=== PATIENT | male | born 1975 | race Caucasian/White ===

== ENCOUNTER 2018-01-21 09:32 | Inpatient (IN) | payer MEDICAID, OTHER ==
--- NOTE | 2018-01-21 09:49 | EDPHY ---
H & P Time Seen by Provider: 01/21/18 09:45 HPI/ROS: CHIEF COMPLAINT: Suicidal ideation HISTORY OF PRESENT ILLNESS: Patient says he was [facility] was hospitalized there for 11 days because of being suicidal. He is recently homeless and presents complaining of suicidal ideation. He says he will "walk into traffic" or he will "buy razors, to watch myself bleed."Denies drug or alcohol use today, denies actually injuring himself or overdosing. REVIEW OF SYSTEMS: Eye: no change in vision ENT: no sore throat Cardiac: no chest pain or syncope Pulmonary: no cough or SOB Abdomen: no vomiting, diarrhea, abdominal pain Musculoskeletal: Chronic back pain, unchanged Skin: no rash Neuro: no headache Constitutional: no fever : no urinary symptoms A comprehensive 10 point review of systems is otherwise negative aside from elements mentioned in the history of present illness. PAST MEDICAL HISTORY: Includes bipolar, seizure disorder, Tourette syndrome Social history: Discharged from [facility] last night, no drugs or alcohol today General Appearance: Alert and conversant, cooperative. Eyes: No scleral icterus. ENT, Mouth: Normal mucous membranes. Respiratory: Normal respiratory effort, breath sounds equal, lungs are clear to auscultation. Cardiovascular: Regular rate and rhythm. Gastrointestinal: Abdomen is soft and non tender. Neurological: Alert, face symmetric, normal motor and sensory in extremities. Ambulatory. Skin: Warm and dry, no rashes. Musculoskeletal: No peripheral edema. Psychiatric: Not agitated. Suicidal with see HPI for details. Emergency Department course/MDM: Patient is placed on a mental health hold by myself for suicidal ideation with a plan. Plan for screening labs and mental health evaluation. Nicotine patch. 1053: The patient had a medical screening evaluation performed. There does not appear to be an acute emergent medical or surgical condition which would preclude psychiatric evaluation at this time. Mental health evaluation is requested at this time. 1200: The patient will be transferred to [facility] for [ inpatient psychiatric hospital bed] not available at this facility, in stable condition; accepting provider is Wilbur Carpenter; EMTALA form completed. Smoking Status: Current every day smoker Constitutional: Initial Vital Signs Temperature (C) 36.4 C 01/21/18 09:37 Heart Rate 94 01/21/18 09:37 Respiratory Rate 18 01/21/18 09:37 Blood Pressure 137/106 H 01/21/18 09:37 O2 Sat (%) 95 01/21/18 09:37 O2 Delivery Mode Room Air Allergies/Adverse Reactions: No Known Allergies Allergy (Unverified 01/21/18 09:35) Home Medications: Medication Instructions Recorded FLUoxetine 20 mg 01/21/18 Fluphenazine HCl 2.5 mg 01/21/18 LEVETIRACETAM 500 mg 01/21/18 Topiramate 25 mg 01/21/18 Medical Decision Making - Data Points Laboratory Results: Laboratory Results 01/21/18 09:45 01/21/18 10:00 01/21/18 01/21/18 01/21/18 10:00 10:00 09:45 WBC 6.02 10^3/uL 10^3/uL (3.80-9.50) RBC 4.83 10^6/uL 10^6/uL (4.40-6.38) Hgb 16.1 g/dL g/dL (13.7-17.5) Hct 44.8 % % (40.0-51.0) MCV 92.8 fL fL (81.5-99.8) MCH 33.3 pg pg (27.9-34.1) MCHC 35.9 g/dL g/dL (32.4-36.7) RDW 11.9 % % (11.5-15.2) Plt Count 147 10^3/uL L 10^3/uL (150-400) MPV 9.8 fL fL (8.7-11.7) Neut % (Auto) 77.3 % H % (39.3-74.2) Lymph % (Auto) 15.6 % % (15.0-45.0) [place] % (Auto) 4.8 % % (4.5-13.0) Eos % (Auto) 1.7 % % (0.6-7.6) Baso % (Auto) 0.3 % % (0.3-1.7) Nucleat RBC Rel Count 0.0 % % (0.0-0.2) Absolute Neuts (auto) 4.65 10^3/uL 10^3/uL (1.70-6.50) Absolute Lymphs (auto) 0.94 10^3/uL L 10^3/uL (1.00-3.00) Absolute Monos (auto) 0.29 10^3/uL L 10^3/uL (0.30-0.80) Absolute Eos (auto) 0.10 10^3/uL 10^3/uL (0.03-0.40) Absolute Basos (auto) 0.02 10^3/uL 10^3/uL (0.02-0.10) Absolute Nucleated RBC 0.00 10^3/uL 10^3/uL (0-0.01) Immature Gran % 0.3 % % (0.0-1.1) Immature Gran # 0.02 10^3/uL 10^3/uL (0.00-0.10) Sodium 142 mEq/L mEq/L (135-145) Potassium 3.7 mEq/L mEq/L (3.3-5.0) Chloride 109 mEq/L mEq/L (97-110) Carbon Dioxide 24 mEq/l mEq/l (22-31) Anion Gap 9 mEq/L mEq/L (6-14) BUN 13 mg/dL mg/dL (7-23) Creatinine 1.0 mg/dL mg/dL (0.7-1.3) Estimated GFR > 60 Glucose 90 mg/dL mg/dL (70-100) Calcium 9.8 mg/dL mg/dL (8.5-10.4) Salicylates < 1.0 mg/dL L mg/dL (2.0-20.0) Urine Opiates Screen NEGATIVE (NEGATIVE) Acetaminophen < 10 mcg/mL L mcg/mL (10-30) Urine Barbiturates NEGATIVE (NEGATIVE) Ur Phencyclidine Scrn NEGATIVE (NEGATIVE) Ur Amphetamine Screen NEGATIVE (NEGATIVE) U Benzodiazepines Scrn NEGATIVE (NEGATIVE) Urine Cocaine Screen NEGATIVE (NEGATIVE) U Marijuana (THC) Screen NEGATIVE (NEGATIVE) Ethyl Alcohol < 10 mg/dL mg/dL (0-10) Medications Given: Discontinued Medications Nicotine (Nicoderm Cq) 21 mg TD EDNOW ONE Stop: 01/21/18 09:59 Last Admin: 01/21/18 10:49 Dose: 21 mg Departure - Departure Disposition: [facility] IP Clinical Impression: Severe major depression Bipolar disorder Qualifiers: Active/Remission status: currently active Current bipolar episode type: depressed Current episode severity: severe Psychotic features: without psychotic features Qualified Code(s): F31.4 - Bipolar disorder, current episode depressed, severe, without psychotic features Condition: Fair Referrals: NONE *PRIMARY CARE P,. [Primary Care Provider] - As per Instructions
[2018-01-21] MEDS ORDERED: NICOTINE 21 MG/24 HR PATCH TD ONE (09:58)
[2018-01-21 10:19] LABS: PLATELET COUNT 147 10^3/uL (150-400)
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
--- NOTE | 2018-01-21 13:39 | ASMTTCLDSP ---
TLC Discharge Disposition Disposition: Answers: Admit Disposition Notes: Notes: Admit 3N. Discharge Concerns/Recommendations: Notes: In consultation with [facility] ED physician, Denilson Garcia MD and on-call psychiatrist, Wilbur Carpenter APN, both concurred that pt appears to meet 27-65 criteria requiring psychiatric hospitalization as pt appears to be at risk of harm to self due to a mental illness condition. Pt was given the 3N prohibited belongings list while in the ED. Was patient given the Answers: Yes Inpatient Behavioral Health Prohibited Belongings List while in the ED? For inpatient Wilbur Carpenter APN admission, the following psychiatrist agreed to accept patient for admission to Behavioral Health ([facility]): Type of Hold: Answers: M1/72-hour Hold Hold initiated by: Answers: ED Physician Date Signed: 01/21/2018 01:38 PM Electronically Signed By:Alfredo Casanova
[2018-01-21] MEDS ORDERED: MAG HYDROX/AL HYDROX/SIMETH 30 ML UDCUP PO PRN (14:14)
[2018-01-21] MEDS ORDERED: MAGNESIUM HYDROXIDE 30 ML UDCUP PO PRN (14:14)
[2018-01-21] MEDS ORDERED: NICOTINE POLACRILEX 2 MG GUM B PRN (14:14)
[2018-01-21] MEDS ORDERED: ARIPiprazole 5 MG TAB PO ONE (14:18)
[2018-01-21] MEDS ORDERED: levETIRAcetam 500 MG TAB PO ONE (14:20)
[2018-01-21] MEDS ORDERED: FLUoxetine 20 MG CAP PO ONE (14:21)
[2018-01-21] MEDS ORDERED: FLUoxetine 20 MG CAP PO SCH (14:25)
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
[2018-01-21] MEDS ORDERED: PNEUMOCOCCAL 0.5ML VACCINE VIAL (PNEUMOVAX 23) IM ONE (14:52)
[2018-01-21] MEDS: NICOTINE 21 MG/24 HR PATCH TD SCH (15:13)
--- NOTE | 2018-01-21 15:13 | HOSPPROG ---
Hospitalist Progress Note Assessment/Plan: I have evaluated and examined the patient with Patsy Solano ROVING HAULER and agree with her assessment and plan with the following exceptions: 42yo M with bipolar disorder with depression, seizures presents with suicidal ideation. Per chart review he has been in and out of acute care hospitals with similar SI over last month or so after becoming homeless. He has no medical indication to remain inpatient at [facility] and is safe to go to [facility]. - Resume anti-epileptic meds (keppra, topamax) at prior doses - Recently had TSH checked, no need to repeat - Metabolic work up and recent head CT unrevealing Subjective: Denies any symptoms include headache, fever, cough, sob, chest pain , n/v/d, rash, leg swelling. Hasn't taken keppra in a few days due to being homeless. Last had seizure about 1 month ago. Objective: Vital Signs Temp Pulse Resp BP Pulse Ox 36.8 C 101 H 14 130/82 H 98 01/21/18 14:12 01/21/18 14:12 01/21/18 14:12 01/21/18 14:12 01/21/18 14:12 - Physical Exam Constitutional: no apparent distress, appears nourished, not in pain Eyes: PERRL, anicteric sclera, EOMI Ears, Nose, Mouth, Throat: moist mucous membranes, hearing normal, ears appear normal, no oral mucosal ulcers Cardiovascular: regular rate and rhythym, no murmur, rub, or gallop Respiratory: no respiratory distress, no rales or rhonchi, clear to auscultation Gastrointestinal: normoactive bowel sounds, soft, non-tender abdomen, no palpable masses Genitourinary: no bladder fullness, no bladder tenderness, no renal bruits Skin: no rashes or abrasions, no fluctuance, no induration, other (healing wound on anterior right thigh) Musculoskeletal: full muscle strength, no muscle tenderness, normal joint ROM Neurologic: AAOx3, sensation intact bilaterally Psychiatric: interacting appropriately, not anxious, not encephalopathic, thought process linear ICD10 Worksheet Patient Problems: Problems Problem Status Onset Bipolar disorder Acute Severe major depression Acute
[2018-01-21] MEDS: IBUPROFEN 600 MG TAB PO PRN (15:27)
[2018-01-21] MEDS: LORazepam 1 MG TAB PO PRN (17:30)
[2018-01-21] MEDS: levETIRAcetam 500 MG TAB PO SCH (20:07)
[2018-01-22] MEDS: levETIRAcetam 500 MG TAB PO SCH ×2 (07:44→19:50)
[2018-01-22] MEDS: ARIPiprazole 10 MG TAB PO SCH (07:45)
[2018-01-22] MEDS: NICOTINE 21 MG/24 HR PATCH TD SCH (07:46)
[2018-01-22] MEDS: LORazepam 1 MG TAB PO PRN ×2 (07:46→17:14)
[2018-01-22] MEDS: IBUPROFEN 600 MG TAB PO PRN ×2 (07:55→15:36)
[2018-01-22] MEDS ORDERED: FLUoxetine 20 MG CAP PO SCH ×2 (09:00)
[2018-01-22] MEDS: LITHIUM CARBONATE ER 300 MG TAB PO SCH ×2 (09:06→19:51)
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
--- NOTE | 2018-01-22 10:18 | PDMN ---
Medical Necessity Medical necessity: [facility] [place] [id number] Major Depressive Disorder, Adult: Inpatient Care: 42 yo w/ Major depressive d/o, recurrent, severe, Tourettes d/o, borderline personality d/o and dependent personality d/o. M1 hold for risk of harm to self.
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
[2018-01-23] MEDS: NICOTINE 21 MG/24 HR PATCH TD SCH (06:37)
--- NOTE | 2018-01-23 07:53 | SOAPPROG ---
SOAP Progress Note Assessment/Plan: Assessment: Bipolar I Disorder, Severe, current depression. Agoraphobia. Homelessness ( see subjective/objective note). Patient is not safe to discharge at this time as patient continues to exhibit signs of depression, and express depression symptoms and SI with plan to walk in front of traffic or cut wrist with razor blade. Patient requires continued inpatient care because of current depression , and requires inpatient level of care to stabilize in order to no longer be a danger to himself. Patient could benefit from continued inpatient hospitalization for crisis stabilization, safety, and medication evaluation. Plan: 1. Psychotropic medications: After reviewing options, risks, and benefits patient agrees to continue current medications. No other medication changes at this time as more time is needed to determine ongoing tolerability and efficacy. Plan is to continue to observe patient for response and side effects from medications, and ongoing monitoring and evaluation. 2. Review with patient informed consent and recommendations for psychotropic medication treatment listed below 3. Labs: no additional labs at this time 4. Therapy: continue milieu and group therapy 5. Further investigation including gathering information from patients relatives and review of past case records to inform treatment plan. 6. Safety/Wellness plan and follow-up outpatient appointments to be established prior to discharge. Next steps are for patient to meet with career development manager to plan a safe discharge plan and establish outpatient services for ongoing treatment. 7. Confer with inpatient treatment team regarding treatment plan. 8. Psychosocial stressors addressed through comp field case manager. 9. Legal status: M1; agrees to voluntary hospitalization when M1 expires. 10. Consider discharge on Saturday if patient is in stable condition, safe, and has a safe discharge plan. PSYCHOTROPIC MEDICATION TREATMENT INFORMED CONSENT and RECOMMENDATIONS: Review nature of condition, diagnosis, and prognosis. Review nature and purpose of psychotropic medication treatment. Review type of psychotropic medications being ordered. Review risk and benefits of psychotropic medication treatment. Review probable length of time patient will need to take medications. Review risk and benefits of not undergoing psychotropic medication treatment. Review alternative treatments to psychotropic medications. Review psychotropic medications contraindications, drug-drug interactions, side effects, and importance of reporting any side effects to a psychiatric provider or nurse during inpatient hospitalization, and upon discharge to patients psychiatric outpatient provider, primary care provider, or other health daycare manager. Review importance of asking a nurse, psychiatric provider, or primary care provider any questions or problems concerning the psychotropic medications. Verify patient understands the information that has been provided, and understands, accepts, and agrees to psychotropic medications. Review patients safety plan and importance of patient to report to staff while hospitalized if patient is ever a danger to self/others, or unable to care for self, and upon discharge, the importance for patient to contact [facility] or [facility], or go to the nearest emergency room, if patient is ever a danger to self/others, or unable to care for self. Recommend that upon discharge patient establish medication management treatment with a psychiatric provider, establishes routine therapy appointments, and follow-up with primary care provider. Verify patient understands and agrees to these recommendations. 01/23/18 07:52 Subjective: Following up with patient for evaluation of depression and safety. Patient reports, "Didn't sleep well last night, thoughts are still there, and still feeling super depressed, feel like I have nothing to live for." Patient reports he does not feel safe to leave the hospital as plan to walk in front of traffic or cut wrists with razor blade. Patient expresses the following psychiatric symptoms severe depression (10/10). Patient reports taking medications as prescribed. Patient does not report undesirable side effects from the medications, and agrees to continue current medications. Patient describes getting 6 hours of sleep, and reports not feeling rested this morning. Objective: Vital Signs Temp Pulse Resp BP Pulse Ox 36.6 C 87 16 111/71 97 01/23/18 06:00 01/23/18 06:00 01/23/18 06:00 01/23/18 06:00 01/23/18 06:00 NURSING REPORT: Consulted with nursing for update on patients progress in treatment. Nurses report patient is engaged in treatment, is attending groups, slept 8 hours, expresses the following psychiatric symptoms: severe depression, SI; exhibits the following psychiatric symptoms: flat affect, withdrawn; is not/ eating all meals, is agreeable to medications and taking as prescribed with no report of side effects, with no s/s of EPS/akathisia, reports SI, denies HI, denies A/V hallucinations, and denies delusions. MSE: The patient is a well-nourished male looking stated chronological age. Attire is appropriate and dress is casual. Grooming status is inappropriate and disheveled, unshaven. Ambulation is independent. Gait is normal and coordinated. Posture is normal and relaxed. Eye contact is appropriate. Motor activity is appropriate with purposeful, organized, coordinated movements ; with no involuntary movements. Attitude is cooperative. Patient appears attentive and does relate well to this interviewer. Language production is spontaneous. R/R/V are normal. Amount is appropriate. Articulation is clear. Patient reports mood as okay with incongruent and flat affect. Patients thought process is linear with no signs of thought disorder. Patient reports suicidal thoughts, denies homicidal ideation. Patient denies auditory, visual hallucinations. Patient denies delusions. Patient does not appear to be attending to internal stimuli. Patients attention and concentration are fair. Patient is oriented to person, place, time. Patients insight and judgment are poor. - Time Spent With Patient Time Spent With Patient: 15 minutes, met with patient individually. - Pending Discharge Pending Discharge Within 24 Hours: No Pending Discharge Within 48 Hours: No ICD10 Worksheet Patient Problems: Problems Problem Status Onset Homelessness Acute Agoraphobia, unspecified Chronic Bipolar II disorder, severe, depressed, with anxious distress Chronic
[2018-01-23] MEDS: LITHIUM CARBONATE ER 300 MG TAB PO SCH ×2 (07:54→19:21)
[2018-01-23] MEDS: levETIRAcetam 500 MG TAB PO SCH ×2 (07:54→19:21)
[2018-01-23] MEDS: ARIPiprazole 10 MG TAB PO SCH (07:54)
[2018-01-23] MEDS: IBUPROFEN 600 MG TAB PO PRN ×3 (07:59→19:58)
[2018-01-23] MEDS: LORazepam 1 MG TAB PO PRN ×3 (07:59→19:57)
[2018-01-23] MEDS: ACETAMINOPHEN 325 MG TAB PO PRN ×2 (11:51→17:11)
--- NOTE | 2018-01-23 12:41 | ASMTCMCOM ---
CM Note CM Note Notes: Pt. was sitting at his desk when CC approached. Pt. stated he is "about 80% in the bad side". Pt. stated "nothing out there for my anymore". Pt. agreed to feeling hopeless. Pt. stated he called his twice dad yesterday and did not get an answer. Pt. stated he hasn't spoken with his family for at least six months, adding some family members he hasn't spoken to in over a year. Pt. stated he "didn't sleep very well". Pt. stated he wasn't able to get an ativan until later in the evening. Pt. stated he "fought my sleep". Pt. reports eating well and reports no issues with his current medications. Pt. stated he attended one group yesterday and "it was useful". Pt. stated he "feel lonely" and started to cry. Pt. stated he sometimes has thoughts of hurting himself, but contracted for safety. Pt. stated he has VH all of the time, pt stating he sees "shadow man" and pointed to a corner of the room. Pt. stated he has AH of woman's voices telling him to hurt himself, bang his head, and that he is worthless. Pt. stated he "very rarely" gets a break from his hallucinations. Pt. presents as alert, nervous, guarded, mostly cooperative, and with inconsistant eye contact. Staff report pt. sleeping 11 hours and being medication compliant. Date Signed: 01/23/2018 12:40 PM Electronically Signed By:Madelyn Ramirez
--- NOTE | 2018-01-23 14:13 | ASMTCMCOM ---
CM Note CM Note Notes: CC received a VM from [employer] Driver (Louise) from [facility] at ; no answer left VM with all necessary return contact information. Waiting to hear back regarding client's follow up. Date Signed: 01/23/2018 02:13 PM Electronically Signed By:Tho Dia
[2018-01-24] MEDS: levETIRAcetam 500 MG TAB PO SCH ×2 (07:52→20:16)
[2018-01-24] MEDS: LITHIUM CARBONATE ER 300 MG TAB PO SCH ×2 (07:52→20:16)
[2018-01-24] MEDS: NICOTINE 21 MG/24 HR PATCH TD SCH (07:53)
--- NOTE | 2018-01-24 07:57 | SOAPPROG ---
SOAP Progress Note Assessment/Plan: Assessment: Bipolar I Disorder, Severe, current depression. Suicidal ideation with plans and high intent. Agoraphobia. Homelessness. No improvement noted (see subjective/objective note). Patient is not safe to discharge at this time as patient continues to exhibit signs of depression, and express severe depression symptoms and SI with plan to walk in front of traffic, cut wrist with razor blade, take overdose. Patient requires continued inpatient care because of current depression, and requires inpatient level of care to stabilize in order to no longer be a danger to himself. Patient could benefit from continued inpatient hospitalization for crisis stabilization, safety, and medication evaluation. Plan: 1. Psychotropic medications: After reviewing options, risks, and benefits patient agrees to continue current medications and agrees to increase Abilify to 15 mg po QD. No other medication changes at this time as more time is needed to determine ongoing tolerability and efficacy. Plan is to continue to observe patient for response and side effects from medications, and ongoing monitoring and evaluation. 2. Review with patient informed consent and recommendations for psychotropic medication treatment listed below 3. Labs: no additional labs at this time 4. Therapy: continue milieu and group therapy 5. Further investigation including gathering information from patients relatives and review of past case records to inform treatment plan. 6. Safety/Wellness plan and follow-up outpatient appointments to be established prior to discharge. Next steps are for patient to meet with primary care sales representative to plan a safe discharge plan and establish outpatient services for ongoing treatment. 7. Confer with inpatient treatment team regarding treatment plan. 8. Psychosocial stressors addressed through binder caser. 9. Legal status: M1; agrees to voluntary hospitalization when M1 expires 10. Consider discharge on Saturday if patient is in stable condition, safe, and has a safe discharge plan. PSYCHOTROPIC MEDICATION TREATMENT INFORMED CONSENT and RECOMMENDATIONS: Review nature of condition, diagnosis, and prognosis. Review nature and purpose of psychotropic medication treatment. Review type of psychotropic medications being ordered. Review risk and benefits of psychotropic medication treatment. Review probable length of time patient will need to take medications. Review risk and benefits of not undergoing psychotropic medication treatment. Review alternative treatments to psychotropic medications. Review psychotropic medications contraindications, drug-drug interactions, side effects, and importance of reporting any side effects to a psychiatric provider or nurse during inpatient hospitalization, and upon discharge to patients psychiatric outpatient provider, primary care provider, or other health day care home mother. Review importance of asking a nurse, psychiatric provider, or primary care provider any questions or problems concerning the psychotropic medications. Verify patient understands the information that has been provided, and understands, accepts, and agrees to psychotropic medications. Review patients safety plan and importance of patient to report to staff while hospitalized if patient is ever a danger to self/others, or unable to care for self, and upon discharge, the importance for patient to contact [facility] or [facility], or go to the nearest emergency room, if patient is ever a danger to self/others, or unable to care for self. Recommend that upon discharge patient establish medication management treatment with a psychiatric provider, establishes routine therapy appointments, and follow-up with primary care provider. Verify patient understands and agrees to these recommendations. 01/24/18 08:00 Subjective: Following up with patient for evaluation of depression and safety. Patient reports, "Didn't sleep well again last night, cried myself to sleep, just nothing out there to live for. I have several plans in my head, take overdose, cut my wrists, walk into traffic. Nothing to live for, not doing well." Patient expresses the following psychiatric symptoms severe depression (10/10). Patient reports taking medications as prescribed. Patient does not report undesirable side effects from the medications, and agrees to continue current medications and agrees to increase Abilify to 15 mg po QD. Patient describes getting 6 hours of sleep, and reports not feeling rested this morning. Objective: Vital Signs Temp Pulse Resp BP Pulse Ox 36.4 C 82 16 128/82 H 97 01/24/18 06:00 01/24/18 06:00 01/24/18 06:00 01/24/18 06:00 01/24/18 06:00 NURSING REPORT: Consulted with nursing for update on patients progress in treatment. Nurses report patient is engaged in treatment, is attending some groups, slept 8 hours, expresses the following psychiatric symptoms: severe depression, SI; exhibits the following psychiatric symptoms: flat affect, withdrawn; is not/eating all meals, is agreeable to medications and taking as prescribed with no report of side effects, with no s/s of EPS/akathisia, reports SI, denies HI, denies A/V hallucinations, and denies delusions. MSE: The patient is a well-nourished male looking stated chronological age. Attire is appropriate and dress is casual. Grooming status is inappropriate and disheveled, unshaven. Ambulation is independent. Gait is normal and coordinated. Posture is normal and relaxed. Eye contact is appropriate. Motor activity is appropriate with purposeful, organized, coordinated movements ; with no involuntary movements. Attitude is cooperative. Patient appears attentive and does relate well to this interviewer. Language production is spontaneous. R/R/V are normal. Amount is appropriate. Articulation is clear. Patient reports mood as okay with incongruent and flat affect. Patients thought process is linear with no signs of thought disorder. Patient reports suicidal thoughts with plans, denies homicidal ideation. Patient denies auditory, visual hallucinations. Patient denies delusions. Patient does not appear to be attending to internal stimuli. Patients attention and concentration are fair. Patient is oriented to person, place, time. Patients insight and judgment are poor. Patient has no apparent dysfunction in recent or remote memory, and no evidence of gross cognitive dysfunction noted at any point during the interview. - Time Spent With Patient Time Spent With Patient: 15 minutes, met with patient individually. - Pending Discharge Pending Discharge Within 24 Hours: No Pending Discharge Within 48 Hours: No ICD10 Worksheet Patient Problems: Problems Problem Status Onset Homelessness Acute Agoraphobia, unspecified Chronic Bipolar II disorder, severe, depressed, with anxious distress Chronic
[2018-01-24] MEDS: IBUPROFEN 600 MG TAB PO PRN ×2 (07:58→14:03)
[2018-01-24] MEDS: LORazepam 1 MG TAB PO PRN ×2 (07:58→14:03)
[2018-01-24] MEDS: ARIPiprazole 10 MG TAB PO SCH (08:01)
[2018-01-24] MEDS ORDERED: ARIPiprazole 5 MG TAB PO ONE (08:15)
--- NOTE | 2018-01-24 10:44 | ASMTCMCOM ---
CM Note CM Note Notes: Pt. stated "wish I was doing better". Pt. stated he is "making plans of other way to kill myself". Pt. stated he slept "not very well". Pt. stated he is eating well. Pt. stated he is not attending groups, but stated he did attend the sound bath yesterday. Pt. stated his medications are "being adjusted". Pt. stated he continues to have VH of the "shadow man". Pt. stated he hears "occassional voices", adding the voices are usually "yelling or screaming". Pt. stated he has thoughts of hurting himself "all the time", but contracts for safety while on the unit. Pt. denied feelings of paranoia. Pt. presents as alert, worried, guarded, minimal eye contact and cooperative. Staff report pt. sleeping 9.5 hours and being medication compliant. CC left a message with Louise at "stages" asking for a call back. Date Signed: 01/24/2018 10:43 AM Electronically Signed By:Madelyn Ramirez
[2018-01-24] MEDS: ACETAMINOPHEN 325 MG TAB PO PRN (11:11)
[2018-01-25] MEDS: levETIRAcetam 500 MG TAB PO SCH ×2 (08:01→19:58)
[2018-01-25] MEDS: ARIPiprazole 5 MG TAB PO SCH (08:01)
[2018-01-25] MEDS: NICOTINE 21 MG/24 HR PATCH TD SCH (08:02)
[2018-01-25] MEDS: LITHIUM CARBONATE ER 300 MG TAB PO SCH ×2 (08:03→20:00)
[2018-01-25] MEDS: LORazepam 1 MG TAB PO PRN ×3 (08:32→20:00)
--- NOTE | 2018-01-25 10:39 | SOAPPROG ---
SOAP Progress Note Assessment/Plan: Assessment: 42yo admitted with Bipolar I Disorder, Severe, current depression. Suicidal ideation with plans and high intent. Agoraphobia. Homelessness. Plan: 01/25/18 10:33 per staff, slept 11hrs. now on room reversal to encourage more time in milieu and decr isolation. not happy about this but compliant. reporting 0/10 SI while in hospital although feels he would be suicidal and not safe if discharged at this time. started on Abilify recently increased to 15mg, and [facility] during current admission, given +depression and reporting hx of manic episodes. has been referred to [facility] for services and respite in [place], [place] where he is from and reports interest in returning. Li level scheduled for 01/27. Vol status. MSE: cooperative, good e/c. nml speech vol/rated. mood depressed, affect constricted but appropriately reactive to content of conversation. denied AH/VH or any current SI. denies thoughts to harm others. thoughts linear, reality based. i/j impaired/limited. oriented x 3 reports no physical complaints except thinks he is coming down with a cold, denied med s/e does not feel he is sleeping well. hopeful for outpatient services to help him with resources. admits he is trying to get on disability, was turned down first time. outpt MH told him he could apply. used to work for $22/hr [employer], van broke down so he couldn't get to work, was l/w aunt/uncle but got kicked out b/c states uncle called him "lazy", made some bad decisions like giving an ex-gf $1500 so she could go to [place], never got any of that $ back. states he did overdose once in suicide attempt in the past which scared him and doesn't think he'd ever do that again. wants help. didn't go to groups initially b/c thought they were the same as when in [place] and felt they were repetitious. now will go. hoping to get off room lock restriction. PLAN: continue meds cont reverse room lock . monitor URI Objective: Vital Signs Temp Pulse Resp BP Pulse Ox 36.4 C 84 14 109/73 98 01/25/18 06:00 01/25/18 06:00 01/25/18 06:00 01/25/18 06:00 01/25/18 06:00 - Time Spent With Patient Time Spent With Patient: 25min - Pending Discharge Pending Discharge Within 24 Hours: No Pending Discharge Within 48 Hours: No ICD10 Worksheet Patient Problems: Problems Problem Status Onset Homelessness Acute Agoraphobia, unspecified Chronic Bipolar II disorder, severe, depressed, with anxious distress Chronic
--- NOTE | 2018-01-25 11:49 | ASMTCMCOM ---
CM Note CM Note Notes: Pt. reports feeling "vibha upset". Pt. stated he has been "locked out of my room for three days because they thoughts I was being antisocial". Pt. stated he doesn't feel good today, stating it is because of the room fan blowing on him at night and receiving a flu shot the other day. Pt. stated his legs and hips hurt because he had to walk a long way to get to the hospital. When asked how he slept, pt stated "not" adding the fan was blowing on him at night, making him too cold to sleep. Pt. reports eating well and willing to attend groups. Pt. stated he would like to be allowed back in his room, and promised to attend all groups. Pt. reports no issues with his current medications. When asked about SI/HI, pt stated "not in here". Pt. stated he continues to see the "shadow man", adding he hears "voices every once in a while". Pt. denied paranoia at this time. Pt. presents as alert, anxious, cooperative, fair amount of eye contact, and a mostly pleasant demeanor. Staff report pt. sleeping 11 hours and being medication compliant. Pt. is now on a reverse room due to "excessive isolation to room". Date Signed: 01/25/2018 11:49 AM Electronically Signed By:Madelyn Ramirez
[2018-01-26] MEDS: ARIPiprazole 5 MG TAB PO SCH (08:03)
[2018-01-26] MEDS: LITHIUM CARBONATE ER 300 MG TAB PO SCH ×2 (08:04→20:11)
[2018-01-26] MEDS: levETIRAcetam 500 MG TAB PO SCH ×2 (08:04→20:09)
[2018-01-26] MEDS: NICOTINE 21 MG/24 HR PATCH TD SCH (08:05)
[2018-01-26] MEDS: LORazepam 1 MG TAB PO PRN ×3 (08:11→20:11)
[2018-01-26] MEDS: ACETAMINOPHEN 325 MG TAB PO PRN (08:42)
--- NOTE | 2018-01-26 11:40 | SOAPPROG ---
SOAP Progress Note Assessment/Plan: Assessment: 42yo admitted with Bipolar I Disorder, Severe, current depression. Suicidal ideation with plans and high intent. Agoraphobia. Homelessness. Plan: 01/25/18 10:33 per staff, slept 11hrs. now on room reversal to encourage more time in milieu and decr isolation. not happy about this but compliant. reporting 0/10 SI while in hospital although feels he would be suicidal and not safe if discharged at this time. started on Abilify recently increased to 15mg, and [place] [facility] during current admission, given +depression and reporting hx of manic episodes. has been referred to [facility] services and respite in [place], [place] where he is from and reports interest in returning. Li level scheduled for 01/27. Vol status. MSE: cooperative, good e/c. nml speech vol/rated. mood depressed, affect constricted but appropriately reactive to content of conversation. denied AH/VH or any current SI. denies thoughts to harm others. thoughts linear, reality based. i/j impaired/limited. oriented x 3 reports no physical complaints except thinks he is coming down with a cold, denied med s/e does not feel he is sleeping well. hopeful for outpatient services to help him with resources. admits he is trying to get on disability, was turned down first time. outpt told him he could apply. used to work for $22/hr [employer] services, van broke down so he couldn't get to work, was l/w aunt/uncle but got kicked out b/c states uncle called him "lazy", made some bad decisions like giving an ex-gf $1500 so she could go to [place], never got any of that $ back. states he did overdose once in suicide attempt in the past which scared him and doesn't think he'd ever do that again. wants help. didn't go to groups initially b/c thought they were the same as when in [place] and felt they were repetitious. now will go. hoping to get off room lock restriction. PLAN: continue meds cont reverse room lock . monitor URI 01/26/18 11:38 slept 10.5hr per staff. c/o not feeling well, thinks from flu shot last week. continues on reverse room lock. occ c/o seeing shadows. maintaining safety on unit. MSE: cooperative, good e/c. nml speech vol/rated. mood depressed, affect constricted but appropriately reactive to content of conversation. denied current AH/VH altho reports still occasionally with "shadow man" image in periphery usually on R, and occasional AH from "inside" his head "yelling at me , negative things like you're worthless". not presently. did not appear responding to any internal stimuli. Denied any SI. denied thoughts to harm others. thoughts linear, reality based. i/j both fair. oriented x 3 denied s/e to medications. c/o not feeling very well physically, with some mm aches and vague abd discomfort. thinks it may have been due to flu shot he got last week or being homeless. plan; has been afebrile. cont to monitor and offer symtomatic txs as indicated. cont current meds. cont reverse room lock . Li+ level scheduled for tomorrow AM. anticipate d/c once outpt svcs in place, safety plan completed, stable on meds and not feeling suicidal. Objective: Vital Signs Temp Pulse Resp BP Pulse Ox 36.4 C 75 15 112/79 97 01/26/18 06:00 01/26/18 06:00 01/26/18 06:00 01/26/18 06:00 01/26/18 06:00 Medications Generic Name Dose Route Start Last Admin Trade Name Freq PRN Reason Stop Dose Admin [place] Carbonate 300 mg 01/22/18 09:00 01/26/18 08:04 Lithobid PO 07/21/18 08:59 300 mg DAILY RONNIE [place] Carbonate 600 mg 01/22/18 21:00 01/25/18 20:00 Lithobid PO 07/21/18 20:59 600 mg HS RONNIE Levetiracetam 750 mg 01/21/18 21:00 01/26/18 08:04 Keppra PO 07/20/18 20:59 750 mg BID RONNIE Aripiprazole 15 mg 01/25/18 09:00 01/26/18 08:03 Abilify PO 07/24/18 08:59 15 mg DAILY RONNIE Nicotine 21 mg 01/21/18 14:30 01/26/18 08:05 Nicoderm Cq TD 07/20/18 14:29 21 mg DAILY RONNIE Nicotine Polacrilex 2 mg 01/21/18 14:14 01/22/18 07:47 Nicorette B 07/20/18 14:13 2 mg Q1HR PRN Nicotine withdrawal Lorazepam 1 mg 01/21/18 14:16 01/26/18 08:11 Ativan PO 07/20/18 14:15 1 mg Q6HRS PRN Anxiety, Able to Take PO - Time Spent With Patient Time Spent With Patient: 15min - Pending Discharge Pending Discharge Within 24 Hours: No Pending Discharge Within 48 Hours: No ICD10 Worksheet Patient Problems: Problems Problem Status Onset Homelessness Acute Agoraphobia, unspecified Chronic Bipolar II disorder, severe, depressed, with anxious distress Chronic
[2018-01-27 06:26] VITALS: BP 133/84
[2018-01-27] MEDS: levETIRAcetam 500 MG TAB PO SCH (07:57)
[2018-01-27] MEDS: ARIPiprazole 5 MG TAB PO SCH (07:57)
[2018-01-27] MEDS: NICOTINE 21 MG/24 HR PATCH TD SCH (07:57)
[2018-01-27] MEDS: LITHIUM CARBONATE ER 300 MG TAB PO SCH (07:58)
[2018-01-27] MEDS: LORazepam 1 MG TAB PO PRN (07:58)
--- NOTE | 2018-01-27 11:51 | ASMTCMCOM ---
CM Note CM Note Notes: Ct. was accepted to [facility]. He is going to be discharge this afternoon and cabbed to [facility]. Date Signed: 01/27/2018 11:50 AM Electronically Signed By:Mary Krause
--- NOTE | 2018-01-27 13:28 | BDS ---
REASON FOR ADMISSION: From the ED note dated 01/21/2018, patient presented to the emergency room complaining of suicidal ideation. Patient reported plans to either walk in front of traffic or by razor blades. Patient denied drug or alcohol use. Patient denied actually injuring himself or overdosing prior to arrival at the emergency room. Patient was admitted involuntarily on an M1 hold due to being a danger to himself. Patient was admitted for safety, crisis stabilization, and medication evaluation. ADMITTING DIAGNOSES: 1. Bipolar II disorder, severe, depressed, with anxious distress. 2. Agoraphobia, unspecified. 3. Homelessness. ADMISSION PHYSICAL EXAM: The patient was seen on 01/21/2018, for internal medicine consultation for medical clearance for inpatient psychiatric hospitalization and treatment. Patient was medically cleared for inpatient psychiatric hospitalization and treatment. For further details, please refer to consultation note dated 01/21/2018, and hospitalist progress note dated 01/21. ADMISSION LABS: CBC from 01/21/2018, within normal limits, except platelet count was low at 147 and neutrophils were elevated at 77.3. Absolute lymphocytes were low at 0.94. Absolute monocytes were low at 0.29. BMP from , within normal limits. Hemoglobin A1c from 01/21/2018, was 4.8 and within normal limits. Average glucose from 01/21/2018, was 91 and within normal limits. Calcium from 01/21/2018, within normal limits at 9.8. Liver function from 01/21/2018, within normal limits. Lipid panel from 01/21/2018, within normal limits, except LDL cholesterol calculated was elevated at 120, and non-HDL cholesterol was elevated at 139. TSH from 01/21/2018, was within normal limits at 1.230. Toxicology screen from 01/21/2018, negative for all substances tested and negative for ethyl alcohol. [place] level on 01/27/2018, was 0.8 at the current dose of lithium ER 900 mg p.o. q.h.s. MAJOR PROCEDURES OR TESTS: None. HOSPITAL COURSE: The most prominent symptoms and behaviors while the patient was here were reports of suicidal ideation with plans to either walk in front of traffic or by razor blades and cut his wrists. The patient also reported a plan to overdose. Target symptoms during hospitalization: Bipolar depression. Treatment modalities utilized were milieu and group therapy. [place] ER 300 mg p.o. q.a.m. and 600 mg p.o. q.h.s. was started to target mood symptoms, was tolerated with no report of side effects and with good response. At time of discharge, lithium ER dose was switched to 900 mg p.o. q.h.s. for once-a-day dosing. Abilify 5 mg p.o. daily was continued and titrated to 15 mg p.o. daily to target mood symptoms and depression. This medication was tolerated with no report of side effects and with good response. Keppra 750 mg p.o. b.i.d. was continued for seizures, was tolerated with no report of side effects and with good response. Patient has improved considerably, with no signs of psychiatric symptoms and no psychiatric symptoms expressed at time of discharge. Patient reports he has improved since admission, states to be in stable condition, feels safe to discharge, and he contracts for safety. Patient's response to treatment was good. There were no adverse or unexpected results of treatment. The patient was safe throughout his stay, active in treatment, attended and engaged in groups, and was appropriate with staff and other patients. The patient met with the treatment team prior to discharge to assess readiness to discharge and review discharge plan. The treatment team consensus is the patient is in stable condition, has a safe discharge plan, and is ready to discharge today. CONDITION ON DISCHARGE: Patient is in stable condition and is no longer a danger to self or others, and is not gravely disabled due to mental illness. Patient is no longer in need of inpatient level of care, and can be safely and effectively treated within the community. The patients level of risk at time of discharge is low. MSE: The patient is casually dressed and with good hygiene , and looks stated age. Patient is sitting, posture is upright, and position is relaxed. Patient appears awake, alert, and responds appropriately and reasonably during interview. Patient is engaged, relates well to interviewer, and emotional facial expression is appropriate to situation and changes appropriately with topic. Patient is cooperative, makes comfortable eye contact , and movements are voluntary, deliberate, coordinated, and smooth and even with no inappropriate movements. Patient makes laryngeal sounds effortlessly and shares conversation appropriately; pace of conversation is appropriate, and stream of talking is fluent; articulation is clear and understandable; word choice is effortless and appropriate for education level; completes sentences, occasionally pausing to think; rate and volume are appropriate for interview and setting. Patient reports mood as euthymic. Patients affect is stable with full variable range, congruent with mood, and appropriate to speech and circumstances. Patient has linear and logical thinking, with no loose associations, tangential thought, thought blocking, concrete thinking, or any other signs of formal thought disorder. Patient denies suicidal and homicidal ideation, and denies hallucinations and delusions. Patient appears to be a reliable historian with sound judgement and good insight into current condition. Patient has no apparent dysfunction in recent or remote memory noted , and no evidence of gross cognitive dysfunction noted at any point during the interview. DISCHARGE DIAGNOSES: 1. Bipolar II disorder, severe, depressed, with anxious distress. 2. Agoraphobia, unspecified. 3. Homelessness. CURRENT MEDICATIONS: After reviewing options, risks and benefits with the patient, the patient agrees to continue: 1. [place] ER 900 mg p.o. q.h.s. 2. Abilify 15 mg p.o. daily. 3. Keppra 750 mg p.o. b.i.d. Patient requested prescriptions for these medications at time of discharge. Prescriptions for 30 days for each medication listed above are provided. This [employer]T [employer]ISHER called the prescriptions to [facility] in [place] prior to patient discharging. This request came from [facility] as the patient will be admitted to [facility] after discharge. The prescriptions are reviewed with the patient at time of discharge to ensure accuracy and patient understanding. DISPOSITION: Patient left the hospital independently and voluntarily, with plans to be admitted at [facility] following discharge. FOLLOWUP: program proposals coordinator reports the appropriate outpatient follow-up services have been established and outpatient appointments have been scheduled. The patient received written instructions with times and dates of outpatient follow-up appointments. The following follow-up recommendations were provided to the patient at discharge: Continue psychotropic medications as prescribed and attend appointments as scheduled. Report any side effects to a psychiatric outpatient provider, a primary care provider, or other health home care scheduler. Address any questions or problems concerning the psychotropic medications with a psychiatric outpatient provider, a primary care provider, or other health home care scheduler. Contact [facility] or [facility], or go to the nearest emergency room, if you are ever a danger to yourself/others, or unable to care for yourself. As soon as possible, establish a routine medication management treatment with a psychiatric provider, establish routine therapy appointments, and follow-up with a primary care provider. LEGAL COURSE: Patient was admitted on an M1 hold for involuntary inpatient psychiatric hospitalization. The patient became voluntary during his stay. Patient discharged today independently and voluntarily. ATTITUDE AT TIME OF DISCHARGE: The patients attitude was positive at time of discharge, and patient reports looking forward to discharging today. The patient reports he feels safe to discharge, is no longer a danger to himself or others, is in stable condition, and contracts for safety. Patient states he will continue medications as prescribed, and establish medication management treatment with an outpatient provider after discharge. Patient reports he understands the information that has been provided to him, and he understands, accepts, and agrees to psychotropic medications. Patient describes internal protective factors as the coping skills he has learned while hospitalized here, and he plans to continue to practice these coping skills after discharge. LABS AND STUDIES: There were no pending labs or studies at time of discharge. ADVANCE DIRECTIVES: There were no advance directives on file, and patient was a full code during this hospitalization. The following psychotropic medication treatment informed consent and recommendations were provided to the patient at time of discharge. Patient reports he understands, accepts, and agrees to the information that has been provided. PSYCHOTROPIC MEDICATION TREATMENT INFORMED CONSENT and RECOMMENDATIONS: Review nature of condition, diagnosis, and prognosis. Review nature and purpose of psychotropic medication treatment. Review type of psychotropic medications being prescribed. Review risk and benefits of psychotropic medication treatment. Review probable length of time will need to take medications. Review risk and benefits of not undergoing psychotropic medication treatment. Review alternative treatments to psychotropic medications. Review psychotropic medications contraindications, side effects, and importance of reporting any side effects to a psychiatric provider, primary care provider, or other health home care scheduler. Review importance of asking a psychiatric provider or primary care provider any questions or problems concerning the psychotropic medications. Review safety plan and the importance to contact [facility] or [facility] , or go to the nearest emergency room, if ever a danger to yourself/others, or unable to care for yourself. Recommend upon discharge to establish routine medication management treatment with a psychiatric provider, establish routine therapy appointments, and follow-up with a primary care provider. Verify patient understands, accepts, and agrees to the information that has been provided. /[id number]
== END 2018-01-27 13:20 | disposition home or self-care (01) | DRG 885 ==
LOC: BBEH 13:40
PROVIDERS: ADMIT Registered Nurse; ATTEND Registered Nurse
DX: F31.4 Bipolar disorder, current episode depressed, severe, without psychotic features (principal); R45.851 Suicidal ideations; F40.00 Agoraphobia, unspecified; M54.5 Low back pain; F95.2 Tourette's disorder; Z91.5 Personal history of self-harm; Z59.0 Homelessness
CPT/HCPCS: 80305; G0008; G0009; G0480